=== PATIENT | female | born 1975 | race Caucasian/White ===

== ENCOUNTER → 2023-06-24 15:18 | Outpatient (REF) | payer OTHER, SELFPAY | LOC: WDC 15:18 | PROVIDERS: ATTENDING PHYSICIAN Family Medicine | DX: Z12.31 Encounter for screening mammogram for malignant neoplasm of breast (principal) | CPT/HCPCS: 77063; 77067 ==

== ENCOUNTER 2024-02-22 14:25 | Inpatient (IN) | payer OTHER, SELFPAY ==
[2024-02-22] VITALS (13 sets, daily range): BP systolic 131–180; BP diastolic 59–101; BMI 46.8
--- NOTE | 2024-02-22 11:32 | ED.GENMED ---
History of Present Illness
<DARA Mendez Last Filed: 02/22/24 14:50>
General
Chief Complaint: Chest Pain
Source: patient
Exam Limitations: none
Time Seen by Provider: 02/22/24 11:32
Nursing documentation reviewed up to this point in time: agreed with
History of Present Illness
History of Present Illness:
48-year-old female with past medical history of GERD, PCOS, cholesterol presents emergency department today with concerns of sudden onset of epigastric pain radiating to the neck and jaw. 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 Patient states that this feels similar in character to her pain that she experiences with GERD however usually the pain does not come on as suddenly and usually the pain does not radiate to the jaw.
Patient went to see the school nurse and patient was given aspirin which did relieve her symptoms. The nurse at the school noted that her blood pressure was elevated and that her cheeks appeared flush and advised patient should report to the ER.
Patient states that the majority of her symptoms have resolved other than some mild burning in her throat. Patient denies cough or cold-like symptoms, sick contacts, back pain, fevers or chills, shortness of breath, he is, maintaining spells.
Patient does not smoke. Patient does have a family history of coronary artery disease in her grandfather. Patient herself does not have any cardiac history. Patient denies any history of exogenous estrogen, history of long distance travel, pain,
redness or swelling in her legs.
Past History
<DRAA Mendez Last Filed: 02/22/24 14:50>
Past History
ED Past Medical History: Other (Hiatal hernia ) and Other (Polycystic disease )
ED Past Surgical History: Gynecological ( )
Social History
Tobacco: Non-smoker
Alcohol: None
Drug: None
Personal:
Living: with family
Employment: Employed
Family History
Family History: Hypertension
Review of Systems
<Oly Norton PA-C - Last Filed: 02/22/24 14:50>
Review of Systems
All Other Systems: ROS reviewed and negative except as documented in HPI and ROS
Phy Exam
<Oly Norton PA-C - Last Filed: 02/22/24 14:50>
Physical Exam
Physical Exam:
General: Patient is well appearing and in no acute distress; non-toxic
Skin: Warm and dry, no rashes or lesions
Head: Normocephalic, atraumatic
Eyes: Sclera non-icteric. EOMs intact.
Throat: No pharyngeal erythema, uvula midline
Cardiac: Regular rate and rhythm, no murmurs, no tenderness palpation of external chest wall
Peripheral Vascular: No lower extremity swelling or edema
Pulm: Normal respiratory effort, no wheezes, rales, rhonchi
Abdomen: No abdominal tenderness to palpation
Neuro: CN II-XII intact, no focal neurologic deficits.
Psychiatric: Appropriate mood and affect.
Scores
<Oly Norton PA-C - Last Filed: 02/22/24 14:50>
Heart Score for Chest Pain Patients
STEMI patient?: No
History: Moderately Suspicious
ECG: Normal
Age: >45 - <65 years
Risk Factors: 1 or 2 Risk Factors
Troponin: >1 - <3 x Normal Limit
Heart Score for Chest Pain Patients: 4
Heart Score Risk: 20.3% MACE over next 6 weeks
<Jazmyn Ennis DO - Last Filed: 02/23/24 11:57>
Heart Score for Chest Pain Patients
Heart Score for Chest Pain Patients: 4
Heart Score Risk: 20.3% MACE over next 6 weeks
Course
<Oly Norton PA-C - Last Filed: 02/22/24 14:50>
Orders/Labs/Results
Orders:
Orders
02/22/24 11:36
EKG [Electrocardiogram (*1)] Urgent
Reason for Study: Chest Pain
EKG- Treatment ONCE
02/22/24 11:45
D-Dimer Urgent
Comment: ADDON
PTT Urgent
Comment: Obtain baseline before beginning heparin infusion if not already collected
02/22/24 11:54
CR Chest - 2 Views Urgent
Comment:
Reason For Exam: chest pain
02/22/24 12:19
CMP [Comprehensive Metabolic Panel] Urgent
Complete Blood Count/With Diff Urgent
Glycohemoglobin (HgbA1c) Urgent
TSH Reflex To Free T4 Urgent
Troponin I Urgent
02/22/24 13:05
Aspirin 325 mg PO NOW STA
02/22/24 13:29
Pantoprazole 80 mg/100 ml Nss [Protonix] 80 mg in 100 ml IV NOW
Pantoprazole [Protonix IV] 40 mg IV NOW STA
02/22/24 13:[address] Non Medication Order As Directed
Physician Order: PTT 6 hours after initial start of Heparin infusion
Above order entered?: Yes
02/22/24 13:47
Heparin 4,000 units IV NOW STA
02/22/24 14:00
Admit/Transfer Patient As Directed
Co-Sign Provider:
Level of Care: Inpatient admission
Assign to:: IVU
Physician / Group: CBC
Diagnosis: ACS
Reason for Hospitalization: ACS
Expected length of stay greater than two midnights?: Yes
ELOS- Estimated Length of Stay in days: 3
I certify the patient meets the requirements for IP care: Yes
PRN Pain Medication Management As Directed
May give lesser potent ordered pain med per pt: Yes
preference::
Protocol:: Medication orders for pain may be administered in a
manner that supports deferring to patient preference
when the pt is:
-Requesting an ordered lesser potent pain medication.
Least to most potent pain medications are defined as:
acetaminophen < NSAID < tramadol < opioids (morphine,
oxycodone, hydromorphone).
- Requesting a lesser dose of the same medication IF
ORDERED.
- Requesting a less intrusive route of administration
if both routes are prescribed by the provider (PO <
IV).
02/22/24 14:05
Code Status As Directed
Resuscitation Status: Full Code
02/22/24 14:07
Add On- LAB Routine
Tests Added?: TSH reflex to T4, HgbA1c
02/22/24 14:07
Echo 2D MMode Color/Doppler Routine
Reason for Study: chest pain
02/22/24 14:15
Heparin 62635 Units/250 ml 25,000 units in 250 ml .ROUTE .STK-MED
02/22/24 14:30
Heparin 48741 Units/250 ml 25,000 units in 250 ml IV PER PROTOCOL
Weight to be used for heparin protocol in kilograms (kg):: 139.5
Protocol:: Cardiac Tx/Acute Coronary
PTT Goal Range to be used:: PTT 73 to 111 seconds
Order type:: Initial
INITIAL Infusion Dose (UNITS/KG/hr) & then follow protocol:: 12 units/kg/hr
Infusion Dose in UNITS/hr & then follow protocol (UNITS/hr):: 1,000
INFUSION RATE in mL/hr & then follow protocol (mL/hr):: 10
PTT less than or equal to 64 seconds:: Increase rate by 200 units/hr (+ 2 mL/hr)
PTT 64.1 to 72.9 seconds:: Increase rate by 100 units/hr (+ 1 mL/hr)
PTT 73 to 111 seconds:: Target Range. No change in rate.
PTT 111.1 to 130.9 seconds:: Decrease rate by 100 units/hr (- 1 mL/hr)
PTT 131 to 199.9 seconds:: HOLD for 1 hr. Then decrease rate by 200 units/hr (- 2 mL/hr)
PTT greater than or equal to 200 seconds:: HOLD for 2 hrs & Notify Provider. Then decrease by 200 units/hr (-
2 mL/hr)
Lab follow-up:: Each change, PTT q6h until 2 consecutive are therapeutic. Then PTT
daily.
02/22/24 18:06
Ezetimibe [Zetia] 10 mg PO QPM
Rosuvastatin Calcium [Crestor] 10 mg PO QPM
02/22/24 18:06
Activity As Directed
Activity Level: Bathroom Privileges
INT (Intravenous Needle Therapy) As Directed
Intake/ Output As Directed
Frequency: Per unit guidelines
Vital Signs As Directed
Frequency: Per unit guidelines
02/23/24 05:46
BMP [Basic Metabolic Panel] IN AM
Lipid Profile [Cardiovascular Evaluation] IN AM
02/23/24 08:00
Aspirin Low Dose EC [Aspir Low (Enteric Coated)] 81 mg PO DAILY
Cetirizine HCl [Zyrtec] 10 mg PO DAILY
Docusate Sodium [Colace] 100 mg PO DAILY
Escitalopram Oxalate [Lexapro] 10 mg PO DAILY
Magnesium l-Lactate [Mag-Tab Sr] 84 mg PO DAILY
Multivitamin [Theragran] 1 tablet PO DAILY
Pantoprazole [Protonix] 40 mg PO DAILY
Abnormal Lab Results
02/22/24
12:19
MCV 80.4 L fL
(81.0-99.0)
MCH 25.5 L pg
(27.0-31.0)
MCHC 31.8 L g/dL
(33.0-37.0)
Monocytes % 9.7 H %
(1.7-9.3)
Carbon Dioxide 34 H mmol/L
(22-30)
Glucose 109 H mg/dl
(70-99)
Hemoglobin A1c 5.9 H %
(4.0-5.6)
Troponin I 0.074 H* ng/ml
02/22/24 12:19
02/22/24 12:19
Vital Signs
Initial and Last Documented VS:
Initial Vital Signs
Temp Pulse Resp BP Pulse Ox
97.8 F 78 20 151/87 99
02/22/24 11:32 02/22/24 11:32 02/22/24 11:32 02/22/24 11:32 02/22/24 11:32
Last Documented Vital Signs
Temp Pulse Resp BP Pulse Ox
98.7 F 71 20 157/83 93
02/23/24 11:00 02/23/24 05:45 02/23/24 11:00 02/23/24 05:44 02/23/24 11:00
<Jazmyn Ennis, DO - Last Filed: 02/23/24 11:57>
Orders/Labs/Results
Orders:
Orders
02/22/24 11:36
EKG [Electrocardiogram (*1)] Urgent
Reason for Study: Chest Pain
EKG- Treatment ONCE
02/22/24 11:45
D-Dimer Urgent
Comment: ADDON
PTT Urgent
Comment: Obtain baseline before beginning heparin infusion if not already collected
02/22/24 11:54
CR Chest - 2 Views Urgent
Comment:
Reason For Exam: chest pain
02/22/24 12:19
CMP [Comprehensive Metabolic Panel] Urgent
Complete Blood Count/With Diff Urgent
Glycohemoglobin (HgbA1c) Urgent
TSH Reflex To Free T4 Urgent
Troponin I Urgent
02/22/24 13:05
Aspirin 325 mg PO NOW STA
02/22/24 13:29
Pantoprazole 80 mg/100 ml Nss [Protonix] 80 mg in 100 ml IV NOW
Pantoprazole [Protonix IV] 40 mg IV NOW STA
02/22/24 13:[address] Non Medication Order As Directed
Physician Order: PTT 6 hours after initial start of Heparin infusion
Above order entered?: Yes
02/22/24 13:47
Heparin 4,000 units IV NOW STA
02/22/24 14:00
Admit/Transfer Patient As Directed
Co-Sign Provider:
Level of Care: Inpatient admission
Assign to:: IVU
Physician / Group: CBC
Diagnosis: ACS
Reason for Hospitalization: ACS
Expected length of stay greater than two midnights?: Yes
ELOS- Estimated Length of Stay in days: 3
I certify the patient meets the requirements for IP care: Yes
PRN Pain Medication Management As Directed
May give lesser potent ordered pain med per pt: Yes
preference::
Protocol:: Medication orders for pain may be administered in a
manner that supports deferring to patient preference
when the pt is:
-Requesting an ordered lesser potent pain medication.
Least to most potent pain medications are defined as:
acetaminophen < NSAID < tramadol < opioids (morphine,
oxycodone, hydromorphone).
- Requesting a lesser dose of the same medication IF
ORDERED.
- Requesting a less intrusive route of administration
if both routes are prescribed by the provider (PO <
IV).
02/22/24 14:05
Code Status As Directed
Resuscitation Status: Full Code
02/22/24 14:07
Add On- LAB Routine
Tests Added?: TSH reflex to T4, HgbA1c
02/22/24 14:07
Echo 2D MMode Color/Doppler Routine
Reason for Study: chest pain
02/22/24 14:15
Heparin [id number] Units/250 ml 25,000 units in 250 ml .ROUTE .STK-MED
02/22/24 14:30
Heparin 00218 Units/250 ml 25,000 units in 250 ml IV PER PROTOCOL
Weight to be used for heparin protocol in kilograms (kg):: 139.5
Protocol:: Cardiac Tx/Acute Coronary
PTT Goal Range to be used:: PTT 73 to 111 seconds
Order type:: Initial
INITIAL Infusion Dose (UNITS/KG/hr) & then follow protocol:: 12 units/kg/hr
Infusion Dose in UNITS/hr & then follow protocol (UNITS/hr):: 1,000
INFUSION RATE in mL/hr & then follow protocol (mL/hr):: 10
PTT less than or equal to 64 seconds:: Increase rate by 200 units/hr (+ 2 mL/hr)
PTT 64.1 to 72.9 seconds:: Increase rate by 100 units/hr (+ 1 mL/hr)
PTT 73 to 111 seconds:: Target Range. No change in rate.
PTT 111.1 to 130.9 seconds:: Decrease rate by 100 units/hr (- 1 mL/hr)
PTT 131 to 199.9 seconds:: HOLD for 1 hr. Then decrease rate by 200 units/hr (- 2 mL/hr)
PTT greater than or equal to 200 seconds:: HOLD for 2 hrs & Notify Provider. Then decrease by 200 units/hr (-
2 mL/hr)
Lab follow-up:: Each change, PTT q6h until 2 consecutive are therapeutic. Then PTT
daily.
02/22/24 18:06
Ezetimibe [Zetia] 10 mg PO QPM
Rosuvastatin Calcium [Crestor] 10 mg PO QPM
02/22/24 18:06
Activity As Directed
Activity Level: Bathroom Privileges
INT (Intravenous Needle Therapy) As Directed
Intake/ Output As Directed
Frequency: Per unit guidelines
Vital Signs As Directed
Frequency: Per unit guidelines
02/23/24 05:46
BMP [Basic Metabolic Panel] IN AM
Lipid Profile [Cardiovascular Evaluation] IN AM
02/23/24 08:00
Aspirin Low Dose EC [Aspir Low (Enteric Coated)] 81 mg PO DAILY
Cetirizine HCl [Zyrtec] 10 mg PO DAILY
Docusate Sodium [Colace] 100 mg PO DAILY
Escitalopram Oxalate [Lexapro] 10 mg PO DAILY
Magnesium l-Lactate [Mag-Tab Sr] 84 mg PO DAILY
Multivitamin [Theragran] 1 tablet PO DAILY
Pantoprazole [Protonix] 40 mg PO DAILY
Abnormal Lab Results
02/22/24
12:19
MCV 80.4 L fL
(81.0-99.0)
MCH 25.5 L pg
(27.0-31.0)
MCHC 31.8 L g/dL
(33.0-37.0)
Monocytes % 9.7 H %
(1.7-9.3)
Carbon Dioxide 34 H mmol/L
(22-30)
Glucose 109 H mg/dl
(70-99)
Hemoglobin A1c 5.9 H %
(4.0-5.6)
Troponin I 0.074 H* ng/ml
02/22/24 12:19
02/22/24 12:19
Vital Signs
Initial and Last Documented VS:
Initial Vital Signs
Temp Pulse Resp BP Pulse Ox
97.8 F 78 20 151/87 99
02/22/24 11:32 02/22/24 11:32 02/22/24 11:32 02/22/24 11:32 02/22/24 11:32
Last Documented Vital Signs
Temp Pulse Resp BP Pulse Ox
98.7 F 71 20 157/83 93
02/23/24 11:00 02/23/24 05:45 02/23/24 11:00 02/23/24 05:44 02/23/24 11:00
<Oly Norton PA-C - Last Filed: 02/22/24 14:50>
MDM/Problems Addressed
Differential Diagnosis Includes:
see below
MDM/Problems Addressed:
NUMBER AND COMPLEXITY OF PROBLEMS ADDRESSED AT THE ENCOUNTER
� Chronic conditions affecting care: GERD
� Acute Exacerbation and/or Progression of Chronic Illness:
� Differential Diagnosis includes: Costochondritis, GERD, ACS, gastritis
AMOUNT AND/OR COMPLEXITY OF DATA TO BE REVIEWED AND ANALYZED
� I performed an independent evaluation of and my interpretation is:
EKG: Normal sinus rhythm with no ischemic changes, there is some artifact, normal QT interval
X-rays: no acute cardiopulmonary abnormality
Laboratory Studies:
Other:
� Review of other/old records: Reviewed previous ER physician documentation from 02/07/2022, patient seen for lump in her leg, seen for possible small lipoma, no other visits for this pain, no discharge summary in [facility]
� Clinical information was obtained by an independent historian: n/a
� Prescriptions/Medications Considered but not given:
� Further testing considered but not performed:
RISK OF COMPLICATIONS AND/OR MORBIDITY OR MORTALITY OF PATIENT MANAGEMENT
� Social determinants of health affecting care: n/a
� Discussion with other providers: ER attending
� Escalation of care including admission/observation vs risk of discharge considered:
48-year-old female with past medical history of GERD presents emergency department today with concerns of epigastric pain radiating to the jaw. This is sudden onset. Patient no longer has this pain. She has no cardiac risk factors other than
hyperlipidemia and obesity. Will repeat EKG here in the ER send troponin often basic blood work, will repeat troponin and reevaluate.
Troponin elevated at 0.074, patient has no other reason for troponin elevation, cardiology consulted will admit for suspected acute coronary syndrome, heparin drip started.
<Oly Norton PA-C - Last Filed: 02/22/24 14:50>
*Critical Care Note
Total Time (30-74mins, 75-104mins- exclusive of procedures): Not Applicable
ED Attending Note
<Oly Norton PA-C - Last Filed: 02/22/24 14:50>
-
Portions of this chart may have been created with voice recognition software.� Occasional wrong word or��sound alike� substitutions may have occurred due to the inherent limitations of voice recognition software.
<Jazmyn Ennis DO - Last Filed: 02/23/24 11:57>
ED Attending Note
Patient seen and examined by attending physician: Yes
I performed the substantive portion of visit, reviewed & personally made and approve the management plan that is documented in note by myself or JESSE.: Yes
I performed a history and physical exam of patient and discussed management with resident, I reviewed resident's note and agree with documented findings and plan of care.: Yes
ED Attending Note:
48-year-old female with history of GERD presenting to the emergency department for acute onset of chest pain. Patient reports around 9 AM, was having central burning chest pain with radiation to her jaw and her esophagus. Symptoms lasted about 20
minutes, felt that symptoms were similar to her was concerned with the acute onset. She took an aspirin. Denies known cardiac history, does report some family history. Denies any difficulty breathing. Denies any history of PE, recent surgery,
recent travel, exogenous estrogen denies abdominal pain. Vital signs are normal.
On exam patient is resting comfortably, no acute distress or discomfort. EKG obtained on patient's arrival, nonischemic. Unremarkable cardiac and pulmonary exam. Suspect possible gastric although the patient's symptoms, however patient does have
some cardiac risk factors so for this reason we will obtain laboratory analysis including troponin and continue to closely monitor.
13:00-patient's initial troponin is elevated. For this reason concern for NSTEMI. Will discuss with cardiology with plan for likely admission and heparin
Discharge Plan
Departure
Patient Disposition: Admit
Date of Disposition: 02/22/24
Time of Disposition: 14:19
Admit to: Telemetry
Presentation/result/management discussed w/ accepting MD/DO: Dr. Mcmanus
Patient with high blood pressure during this ER visit?: Yes
Discharge Problem:
Chest pain, Elevated troponin
Interventions
Interventions:
*Risk Screen - Suicide Last Done: 02/22/24 11:32
*General Assessment Last Done: 02/22/24 11:32
*Neglect/Abuse Screening Last Done: 02/22/24 11:32
ED- Fall Risk Assessment Last Done: 02/22/24 11:44
*ED COVID-19 Vaccine History Last Done: 02/22/24 11:32
*Nursing Disposition Last Done: 02/22/24 18:05
ED- Cardiac Assessment Last Done: 02/22/24 11:44
Discharge Date and Time
Discharge Date/Time: 02/22/24 18:00
[2024-02-22 12:35] LABS: % Basophils 0.9 % (0-2); % Eosinophils 3.3 % (0-6); % Immature Granulocytes 0.2 % (0-0.5); % Lymphocytes 28.1 % (20.5-51.1); % Monocytes 9.7 % (1.7-9.3); % Neutrophils 57.8 % (42.2-75.2); Absolute Basophils 0.1 10^3/uL (0-0.2); Absolute Eosinophils 0.2 10^3/uL (0-0.7); Absolute Lymphocytes 1.5 10^3/uL (1.2-3.4); Absolute Monocytes 0.5 10^3/uL (0.1-0.6); Absolute Neutrophils 3.2 10^3/uL (1.4-6.5); Hematocrit 40.3 % (37.0-47.0); Hemoglobin 12.8 g/dL (12.0-16.0); Mean Corp Hgb Conc. 31.8 g/dL (33.0-37.0); Mean Corpuscular Hgb 25.5 pg (27.0-31.0); Mean Corpuscular Volume 80.4 fL (81.0-99.0); Mean Platelet Volume 9.9 fL (7.4-10.4); Nucleated Red Blood Cells % 0 %; Platelet Count 156 10^3/uL (130-400); Red Blood Cell Count 5.01 10^6/uL (4.20-5.40); Red Cell Dist. Width 14.1 % (11.5-14.5); White Blood Cell Count 5.5 10^3/uL (4.8-10.8)
[2024-02-22 12:49] LABS: ALT (SGPT) 30 U/L (0-35); AST (SGOT) 29 U/L (14-36); Albumin 4.2 g/dl (3.5-5.0); Alkaline Phosphatase 73 U/L (38-126); Blood Urea Nitrogen 11 mg/dl (7-17); Calcium 9.2 mg/dl (8.4-10.2); Carbon Dioxide 34 mmol/L (22-30); Chloride 100 mmol/L (98-107); Estimated Creatinine Clearance > 125 ml/min; Glucose 109 mg/dl (70-99); Sodium 140 mmol/L (135-145); Total Bilirubin 0.3 mg/dl (0.2-1.3); eGFR > 60.00
[2024-02-22 13:04] LABS: Troponin I 0.074 ng/ml
--- NOTE | 2024-02-22 13:50 | CON.CAR ---
Consultation
Consultation Request
Date/Time Consultation Requested: 02/22/24 @ 13:09
Date/Time Consultation Performed: 02/22/24 @ 13:40
Requesting Provider: FLAVIO Garcia
Performing Provider: Ezekiel Mcmanus MD
Reason for Consultation: chest pain
Medical History
-
Chief Complaint: Chest pain
History of Present Illness:
This is a history and physical.
48-year-old female with history of PCOS, obesity, prediabetes, hyperlipidemia, and positive antiphospholipid antibody (on ASA) who presents with sudden onset chest pain. 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
when she developed floaters in her vision. This happens to her sometimes with coughing. 10 minutes later she developed acute epigastric pain radiating to her left jaw. It lasted for approximately 15 minutes. She presented to the school nurses
office and was noted to be hypertensive with BP 180/110. She was given an aspirin to chew and EMS was called. She reports that her chest pain is now completely resolved. She has never had a pain like this before; it is different from her GERD.
In terms of her history, she takes ezetimibe for hyperlipidemia. She was told when she was with one of her children that she had a positive antiphospholipid antibody and should be on aspirin 81 mg indefinitely. She does not have high
blood pressure. [place] and is very active (has to carry leandro of hay, buckets of water, etc.). She denies shortness of breath or chest pain with any of these activities. She denies a family history of premature coronary artery
disease. She is a never smoker, does not drink alcohol, and does not use drugs. She has had 2 uncomplicated pregnancies and was never diagnosed with gestational hypertension or diabetes. She denies any recent immobility or long car/air travel.
Past Medical History
Past Medical History: Hypercholesterolemia and Other (PCOS)
Social History
Tobacco: Non-Smoker
Alcohol: None
Drug: None
Living: With Family
Employment: Employed
Family History
Family History: Reviewed & Not Pertinent
Allergies / Home Medications
Allergy/AdvReac Type Severity Reaction Status Date / Time
prednisone [Prednisone] Allergy Rash all Verified 02/22/24 11:45
over
Tetanus Vaccines and Toxoid Allergy swelling Verified 02/22/24 11:45
[Tetanus] from below
elbow to
shoulder
acetaminophen [From Vicodin] AdvReac makes Verified 02/22/24 11:45
chest feel
very heavy
amoxicillin [From Augmentin] AdvReac Vomiting Verified 02/22/24 11:45
clavulanic acid AdvReac Vomiting Verified 02/22/24 11:45
[From Augmentin]
hydrocodone [From Vicodin] AdvReac makes Verified 02/22/24 11:45
chest feel
very heavy
environmental Allergy runny Uncoded 02/22/24 11:45
nose;congestion
�Medication �Instructions �Recorded �Confirmed �Type
aspirin 81 mg tablet,delayed 81 mg PO DAILY 08/25/11 02/22/24 History
release
Elderberry Gummies 1 gum PO DAILY 03/16/19 02/22/24 History
Vitafusion Womens Vitamin 1 tab PO DAILY 03/16/19 02/22/24 History
cetirizine 10 mg tablet (Zyrtec) 10 mg PO DAILY 03/16/19 02/22/24 History
esomeprazole magnesium 20 mg 20 mg PO DAILY 03/16/19 02/22/24 History
capsule,delayed release (Nexium)
docusate sodium 100 mg capsule 100 mg PO DAILY 02/22/24 02/22/24 History
(Colace)
escitalopram oxalate 10 mg tablet 10 mg PO DAILY 02/22/24 02/22/24 History
(Lexapro)
ezetimibe 10 mg tablet (Zetia) 10 mg PO QPM 02/22/24 02/22/24 History
magnesium oxide 400 mg PO DAILY 02/22/24 02/22/24 History
phentermine 37.5 mg tablet 18.75 mg PO BID 02/22/24 02/22/24 History
rizatriptan 10 mg tablet (Maxalt) 0 mg PO .COMPLEX 02/22/24 02/22/24 History
Review of Systems
-
All other systems: Negative unless noted
Physical Exam
Vital Signs
Temp Pulse Resp BP Pulse Ox
97.8 F 73 21 151/87 99
02/22/24 11:32 02/22/24 11:35 02/22/24 11:35 02/22/24 11:34 02/22/24 11:32
Lab Results
02/22/24 12:19
02/22/24 12:19
Troponin I 0.074 ng/ml H* 02/22/24 12:19
Lipids May 2023: TC 223 HDL 50 LDL 150 TG 130
A1c 2023: 6.2
ECG: Normal sinus rhythm, no evidence of ischemia
Physical Exam
General: Well Developed and Well Nourished
HEENT: Normocephalic and Anicteric
Respiratory: Clear and Non Labored Respirations
Cardiac: S1/S2 and Regular Rhythm; Negative Murmur, Rub, Peripheral Edema or JVD
Breast: Deferred by me
Musculoskeletal: No Edema
Skin: Warm and Dry; Negative Rash
Neuro: AO x 3
Psych: Calm
Impression / Plan
-
48-year-old female with history of PCOS, obesity, prediabetes, hyperlipidemia, and positive antiphospholipid antibody (on ASA) who presents with sudden onset chest pain, found to have positive troponin.
Chest pain with elevated troponin
-Differential includes type I NSTEMI versus type II NSTEMI in the setting of hypertension versus pulmonary embolism
-Please obtain D-dimer to rule out PE
-Start heparin drip for possible ACS
-She is chest pain-free, has no signs/symptoms of heart failure, and has no arrhythmias on telemetry so there is no need for emergent cardiac catheterization
-Continue to trend troponins with repeat ECGs until peak
-Patient is s/p aspirin 325 mg
-Based on her troponin trend and clinical course we will decide if she needs catheterization this admission or could do an outpatient stress test
-Follow-up echocardiogram
Hyperlipidemia
-Continue home ezetimibe 10 mg daily
-Start rosuvastatin 10 mg daily
Data Reviewed
-
EKG: Tracing Personally Visualized and interpreted
Radiology: Image Personally Visualized and interpreted and Discussed with Physician
Medical Tests (Nuc Med, Echo etc): Other (Ordered by me)
Labs: Labs Reviewed by me, Discussed with Physician and Discussed with Patient
[2024-02-22 14:22] LABS: APTT 27.9 Sec (23.4-35.0)
[2024-02-22] MEDS: HEPARIN 4000 UNITS IV (14:35)
[2024-02-22] MEDS: HEPARIN 25000 UNITS/250 ML IV (14:37)
[2024-02-22 15:56] LABS: TSH Reflex To Free T4 1.18 uIU/ml (0.47-4.68)
--- NOTE | 2024-02-22 17:57 | EDRN ---
Report called to MICHELLE Waters. Patient transported to room 2245 on monitor with Heparin drip infusing at 1000 units/HR by ED RN.
[2024-02-22 18:35] LABS: Troponin I 0.036 ng/ml
--- NOTE | 2024-02-22 19:15 | W.PN.UPDATE ---
Update Note
Progress Note Update
Patient second troponin is downtrending. Suspect that this is more likely type II NSTEMI in the setting of previously undiagnosed hypertension. We can stop trending troponin. Will stop heparin given low concern for ACS. Will start JEREMY inhibitor
for blood pressure control given comorbid prediabetes. Patient will need outpatient stress test.
--- NOTE | 2024-02-22 19:20 | PTCARENOTE ---
Received pt from the ED. Pt on heparin drip at 10 ml/hr. BP 168/83, hr 79- NSR, 98.4 temp. Pt continues to c/o intermittent 'indigestion' in the epigastric area. She rates this discomfort as 2 out of 10 on pain scale. Will monitor.
[2024-02-22 19:27] LABS: D-Dimer 0.32 ug/mlFEU (0.00-0.50)
[2024-02-22] MEDS: ZETIA 10 MG PO (20:31)
--- NOTE | 2024-02-22 20:49 | PTCARENOTE ---
discussed plan of care with Dr. Mcmanus via TT. d/c heparin gtt and troponin checks-completed. monitor blood pressure overnight. update is SBP over 180.
currently patient is resting in bed comfortable with family at the bedside. denies any cp/sob. SR 80s on tele. educated patient to inform RN with any changes overnight. oob independently.
patient refused PM Crestor dose. patient states history of satin intolerance, 'i did not feel well.' -does not recall which medication. will pass on.
[2024-02-22] MEDS: ZESTRIL 10 MG PO (22:31)
[2024-02-22] MEDS: PROTONIX 40 MG PO (22:31)
--- NOTE | 2024-02-22 23:04 | PTCARENOTE ---
bp 180/94. HR 60s. patient also complaining of indigestion- she states not taking her Nexium today. updated Dr. Mcmanus. lisinopril and protonix orders placed-see may.
[2024-02-23 05:44] VITALS: BP 157/83
[2024-02-23 06:50] LABS: Blood Urea Nitrogen 9 mg/dl (7-17); Carbon Dioxide 30 mmol/L (22-30); Chloride 102 mmol/L (98-107); Estimated Creatinine Clearance > 125 ml/min; Glucose 116 mg/dl (70-99); HDL Cholesterol 56 mg/dl; LDL Cholesterol, Calculated 133 mg/dl; Potassium 4.1 mmol/L (3.5-5.1); Sodium 140 mmol/L (135-145); Total Cholesterol 213 mg/dl (50-199); Triglyceride 120 mg/dl (10-149); Very Low Density Lipoprotein 24 mg/dl (0-30); eGFR > 60.00
[2024-02-23 07:47] VITALS: BP 149/75
[2024-02-23] MEDS: COLACE 100 MG PO (07:49)
[2024-02-23] MEDS: ZYRTEC 10 MG PO (07:49)
[2024-02-23] MEDS: ASPIR LOW (ENTERIC COATED) 81 MG PO (07:50)
[2024-02-23] MEDS: PROTONIX 40 MG PO (07:50)
[2024-02-23] MEDS: LEXAPRO 10 MG PO (07:50)
[2024-02-23] MEDS: THERAGRAN 1 TABLET PO (07:50)
[2024-02-23] MEDS: MAG-TAB SR 84 MG PO (07:50)
--- NOTE | 2024-02-23 08:42 | W.PN.CD ---
Today's Communication / Plan
-
Stress echo today. If this is normal, she can be discharged
New medications: Amlodipine 5 mg daily, rosuvastatin 10 mg daily
Follow-up with family medicine doctor for a new diagnosis of hypertension
Impression / Plan
-
48-year-old female with history of PCOS, obesity, prediabetes, hyperlipidemia, and positive antiphospholipid antibody (on ASA) who presents with sudden onset chest pain, found to have positive troponin.
Type II NSTEMI in the setting of hypertensive emergency
-Troponin trend 0.074 -> 0.036 in the setting of BP 180/110
-TTE yesterday with normal biventricular function and no wall motion abnormalities or valvular disease
-Stress echo today to rule out obstructive CAD
-Management of hypertension as below
Hypertension
-Had some hand swelling with lisinopril (suspect this is just related to fluids)
-Switch to amlodipine 5 mg daily
-Advised her that she needs close outpatient follow-up with her family medicine doctor
Hyperlipidemia
-Continue home ezetimibe 10 mg daily
-Start rosuvastatin 10 mg daily
Subjective: Patient feels well today. No recurrence of chest pain overnight. No events on telemetry.
Physical Exam
Vital Signs/Labs
Vital Signs
Temp Pulse Resp BP Pulse Ox
98.9 F 71 16 157/83 97
02/23/24 07:54 02/23/24 05:45 02/23/24 07:54 02/23/24 05:44 02/23/24 07:54
02/22/24 02/23/24 02/24/24
06:59 06:59 06:59
Actual Weight 139.5 kg
02/22/24 12:19
02/23/24 05:46
APTT Cancelled 02/22/24 20:30
Triglycerides 120 mg/dl (10-149) 02/23/24 05:46
LDL Cholesterol, Calc 133 mg/dl 02/23/24 05:46
VLDL Cholesterol, Calc 24 mg/dl (0-30) 02/23/24 05:46
HDL Cholesterol 56 mg/dl 02/23/24 05:46
LAB Results
02/22/24 02/22/24
12:19 17:52
Troponin I 0.074 H* 0.036 H* D
Physical Exam
Constitutional: No acute distress and Comfortable
Cardiovascular: Rhythm & rate is regular, Pedal edema is absent, JVD pressure is normal, S1S2 is normal and Murmur/rub/gallop absent
Respiratory: Respiratory effort normal and Lungs clear to auscul.
Neuro/Psych: AO x 3
Data Reviewed
-
Date of Service: February 23, 2024
Medical Decision Making: Reviewed Test Results, Independent Historian Assessment, Test Interpretation and Review of Case with other Provider
EKG: Tracing Personally Visualized and interpreted
Echo: Tracing Personally Visualized and interpreted
Labs: Labs Reviewed by me
[2024-02-23] MEDS: NORVASC 5 MG PO (09:17)
[2024-02-23 09:43] LABS: Glycohemoglobin (HgbA1c) 5.9 % (4.0-5.6)
[2024-02-23 10:09] VITALS: BMI 45.0
[2024-02-23 11:01] VITALS: BP 154/88
--- NOTE | 2024-02-23 11:07 | PTCARENOTE ---
Patient returned from her stress echo. BP 154/88, NSR HR 86. Call maravilla in reach
--- NOTE | 2024-02-23 11:59 | W.DS.TRANS ---
DC Summary - Creative Services Director
-
Discharge Instructions:
Discharge Diagnosis/Procedures Hypertensive emergency
Diet 2 Gram Sodium,Low Cholesterol
Driving Restrictions As prior to admission
Bathing Restrictions None
Instructions:
Stand-Alone Forms:
Changes to Home Medications: Yes
Discharge Medications:
DC Medications w/original date entered in [facility]
aspirin 81 mg tablet,delayed release 81 mg PO DAILY Blood Clot Prevention/Tx 08/25/11
Elderberry Gummies 1 gum PO DAILY Supplement 03/16/19
Vitafusion Womens Vitamin 1 tab PO DAILY Supplement 03/16/19
cetirizine 10 mg tablet (Zyrtec) 10 mg PO DAILY Allergies 03/16/19
esomeprazole magnesium 20 mg capsule,delayed release (Nexium) 20 mg PO DAILY Gastrointestinal Issue 03/16/19
docusate sodium 100 mg capsule (Colace) 100 mg PO DAILY Constipation 02/22/24
escitalopram oxalate 10 mg tablet (Lexapro) 10 mg PO DAILY depression/anxiety 02/22/24
ezetimibe 10 mg tablet (Zetia) 10 mg PO QPM High Cholesterol 02/22/24
magnesium oxide 400 mg PO DAILY Supplement 02/22/24
phentermine 37.5 mg tablet 18.75 mg PO BID weight loss 02/22/24
rizatriptan 10 mg tablet (Maxalt) 0 mg PO .COMPLEX migraine 02/22/24
amlodipine 5 mg tablet 5 mg PO DAILY #30 tabs 02/23/24
rosuvastatin 10 mg tablet 10 mg PO QPM #30 tabs 02/23/24
Home Medication Changes
No medications were discontinued.
Amlodipine and rosuvastatin were added.
Pending Results: No
--- NOTE | 2024-02-23 12:48 | CM ---
CM following for DC planning needs.
Met w/ patient at bedside to complete initial assessment.
Pt. resides in a private, 2 story home w/ spouse.
Functionally, patient is indep. at baseline w/ ADLs, mobility without the use of any assisted device. 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
Pt. has CPAP at home and uses regularly.
Pt. has +PP and uses [facility] in [place] for Rx.
Anticipated DC plan is for home, no needs.
[2024-02-23 13:04] VITALS: BP 159/87
--- NOTE | 2024-02-23 14:14 | PTCARENOTE ---
Patient discharged to home. IV and Telemetry removed. Discharge teaching completed, patient verbalized understanding
== END 2024-02-23 14:21 | disposition home or self-care (01) | DRG 281 ==
LOC: IVU 14:25
PROVIDERS: Internal Medicine Cardiovascular Disease; Nurse Practitioner Gerontology; Physician Assistant; ADMITTING PHYSICIAN Student in an Organized Health Care Education/Training Program; EMERGENCY PHYSICIAN Student in an Organized Health Care Education/Training Program; FAMILY PHYSICIAN Family Medicine
PROC: 4A02XM4 Measurement of Cardiac Total Activity, External Approach (ICD-10-PCS; 2024-02-23)
PROC: 3E033HZ Introduction of Radioactive Substance into Peripheral Vein, Percutaneous Approach (ICD-10-PCS; 2024-02-23)
DX: I16.1 Hypertensive emergency (principal); Z68.42 Body mass index [BMI] 45.0-49.9, adult; I21.A1 Myocardial infarction type 2; E28.2 Polycystic ovarian syndrome; E66.9 Obesity, unspecified; Z79.82 Long term (current) use of aspirin; E78.00 Pure hypercholesterolemia, unspecified; Z88.8 Allergy status to other drugs, medicaments and biological substances; Z88.1 Allergy status to other antibiotic agents; R73.03 Prediabetes; I10 Essential (primary) hypertension; K21.9 Gastro-esophageal reflux disease without esophagitis; Z82.49 Family history of ischemic heart disease and other diseases of the circulatory system
CPT/HCPCS: 93017; 71046; 80048; 80053; 80061; 83036; 84443; 84484; 85025; 85379; 85730; 93005; 93306; 93350; 99285; Q9957

== ENCOUNTER → 2025-03-09 07:47 | Outpatient (REF) | payer OTHER, SELFPAY | LOC: HWWDC 07:47 | PROVIDERS: FAMILY PHYSICIAN Family Medicine | DX: Z12.31 Encounter for screening mammogram for malignant neoplasm of breast (principal) | CPT/HCPCS: 77063; 77067 ==